=== PATIENT | female | born 1990 | race Caucasian/White ===

== ENCOUNTER 2017-12-25 00:31 | Observation (INO) ==
[2017-12-25] MEDS ORDERED: MORPHINE 4 MG/1 ML VIAL IV STA (01:02)
[2017-12-25] MEDS ORDERED: ONDANSETRON 4 MG/2 ML VIAL IV STA ×2 (01:02→04:03)
[2017-12-25 01:41] LABS: Basophils % 0.3 % (0.0-0.8); Eosinophils # 0.3 10*3/uL (0.0-0.87); Eosinophils % 3.1 % (0.00-10.9); Hematocrit 41.3 VOL% (35.7-47.0); Hemoglobin 13.9 GM/DL (12.0-16.0); Immature Granulocytes % 0.2 %; Immature Granulocytes Absolute 0.02 #; Lymphocytes # 1.8 10*3/uL (1.4-4.0); Lymphocytes % 20.1 % (21.3-54.2); Mean Corpuscular HGB Conc 33.7 GM/DL (32-36); Mean Corpuscular Hemoglobin 32 PG (27-34); Mean Corpuscular Volume 95.2 FL (87-102); Mean Platelet Volume 10.8 FL (9.6-12.0); Monocytes # 0.4 10*3/uL (0.11-0.8); Monocytes % 4.6 % (1.7-12.7); Neutrophils # 6.5 10*3/uL (1.4-7.4); Neutrophils % 71.7 % (38.7-73.9); Platelet Count 234 T/CUMM (130-400); Red Blood Count 4.34 MC/CUMM (3.8-5.5); Red Cell Distribution Width 12.8 % (9.3-17.3); White Blood Count 9.1 T/CUMM (4-12)
[2017-12-25 02:15] LABS: Albumin 3.5 G/DL (3.4-5.0); Bilirubin,Total 0.8 MG/DL (0.2-1.0); Calcium 8.6 MG/DL (8.5-10.1); Osmolality,Calculated 276.4 MOS/KG (273-304); Potassium 3.4 MMOL/L (3.5-5.1); Total Protein 7.3 G/DL (6.4-8.3)
[2017-12-25 04:01] LABS: Apearance,Urine Slightly Hazy (Clear); Bacteria,Urine Occasional /HPF (Few); Bilirubin,Urine Small mg/dL (Negative); Blood, Urine Moderate mg/dL (Negative); Glucose,Urine (UA) Negative (Negative); Ketones,Urine Negative (Negative); Mucus,Urine Many /LPF (Occasional); Nitrite,Urine Negative (Negative); Protein,Urine 30 MG/DL; RBC,Urine 4 /HPF (0-4); Squamous Epithelial Cell,Urine Occasional /HPF (0-10); Urine Color Amber (Yellow); Urine Specific Gravity 1.028 (1.001-1.035); WBC,Urine 2 /HPF (0-6)
[2017-12-25] MEDS ORDERED: HYDROmorphone 2 MG/1 ML VIAL IV STA (04:02)
[2017-12-25] MEDS: SODIUM CHLORIDE 0.9% 1,000 ML IV STA ×2 (04:34→04:41)
[2017-12-25] MEDS: DEXTROSE 5% LACTATED RINGERS 1,000 ML IV SCH ×2 (12:21→16:17)
[2017-12-25] MEDS: PANTOPRAZOLE 40 MG TABLET PO SCH (14:08)
[2017-12-25] MEDS: ONDANSETRON 4 MG/2 ML VIAL IV PRN (20:38)
[2017-12-25] MEDS: HYDROmorphone 2 MG/1 ML VIAL IV PRN (21:55)
[2017-12-26] MEDS: DEXTROSE 5% LACTATED RINGERS 1,000 ML IV SCH ×2 (06:57→20:26)
[2017-12-26] MEDS ORDERED: LIDOCAINE 100 MG/5 ML SYRINGE ONE (09:40)
[2017-12-26] MEDS ORDERED: PROPOFOL 200 MG/20 ML VIAL IV ONE (09:40)
[2017-12-26] MEDS: PANTOPRAZOLE 40 MG TABLET PO SCH (12:09)
[2017-12-26] MEDS: HYDROmorphone 2 MG/1 ML VIAL IV PRN (14:50)
[2017-12-26] MEDS: ONDANSETRON 4 MG/2 ML VIAL IV PRN ×2 (14:54→18:42)
[2017-12-27] MEDS: DEXTROSE 5% LACTATED RINGERS 1,000 ML IV SCH ×2 (06:29→15:27)
[2017-12-27] MEDS: PANTOPRAZOLE 40 MG TABLET PO SCH (09:20)
[2017-12-27] MEDS: ONDANSETRON 4 MG/2 ML VIAL IV PRN ×2 (09:50→20:33)
[2017-12-27] MEDS ORDERED: ceFAZolin 1,000 MG in SYRINGE 1 EACH IV ONE (11:25)
[2017-12-27] MEDS: HYDROmorphone 2 MG/1 ML VIAL IV PRN ×2 (12:34→20:36)
[2017-12-28] MEDS: DEXTROSE 5% LACTATED RINGERS 1,000 ML IV SCH ×3 (01:10→19:13)
[2017-12-28] MEDS ORDERED: ceFAZolin 1,000 MG in SYRINGE 1 EACH IV ONE (06:00)
[2017-12-28] MEDS ORDERED: HYDROmorphone 2 MG/1 ML VIAL ONE (10:04)
[2017-12-28] MEDS: HYDROmorphone 2 MG/1 ML VIAL IV PRN ×6 (10:15→22:49)
[2017-12-28] MEDS: PANTOPRAZOLE 40 MG TABLET PO SCH (10:59)
[2017-12-28] MEDS ORDERED: NEOSTIGMINE 10 MG/10 ML VIAL ONE (12:31)
[2017-12-28] MEDS ORDERED: fentaNYL 100 MCG/2 ML VIAL ONE (12:31)
[2017-12-28] MEDS ORDERED: PROPOFOL 200 MG/20 ML VIAL IV ONE (12:31)
[2017-12-28] MEDS ORDERED: SEVOFLURANE 1 UNIT/15 MINUTE INH ONE (12:31)
[2017-12-28] MEDS ORDERED: MIDAZOLAM 2 MG/2 ML VIAL ONE (12:31)
[2017-12-28] MEDS ORDERED: GLYCOPYRROLATE 0.4 MG/2 ML VIAL ONE (12:31)
[2017-12-28] MEDS ORDERED: KETOROLAC 30 MG/1 ML VIAL ONE (12:31)
[2017-12-28] MEDS ORDERED: ROCURONIUM 100 MG/10 ML VIAL IV ONE (12:31)
[2017-12-28] MEDS: ONDANSETRON 4 MG/2 ML VIAL IV PRN ×2 (16:05→22:48)
[2017-12-29] MEDS: DEXTROSE 5% LACTATED RINGERS 1,000 ML IV SCH (03:29)
[2017-12-29] MEDS: ONDANSETRON 4 MG/2 ML VIAL IV PRN ×2 (05:05→09:25)
[2017-12-29] MEDS: HYDROmorphone 2 MG/1 ML VIAL IV PRN ×2 (05:05→09:20)
[2017-12-29] MEDS: PANTOPRAZOLE 40 MG TABLET PO SCH (09:31)
[2017-12-29 13:02] VITALS: BP 106/59
== END 2017-12-29 14:30 | disposition home or self-care (01) ==
LOC: N.ED 00:31 → N.EDINP 00:31 → N.3E 04:30
PROVIDERS: ADMIT Surgery; ATTEND Surgery
PROC: LAPCHOL (2017-12-28 08:41)

== ENCOUNTER 2019-08-18 10:41 | Inpatient (IN) ==
[2019-08-18 11:30] LABS: Barbiturates Screen,Urine Negative (Negative); Benzodiazepines Screen,Urine Negative (Negative); Cannabinoid Screen,Urine Positive (Negative); Opiate Screen,Urine Positive (Negative); Phencyclidine Screen,Urine Negative (Negative)
[2019-08-18 11:45] LABS: Basophils % 0.4 % (0.0-0.8); Eosinophils # 0.3 10*3/uL (0.0-0.87); Eosinophils % 2.3 % (0.00-10.9); Hematocrit 34.8 VOL% (35.7-47.0); Hemoglobin 11.4 GM/DL (12.0-16.0); Immature Granulocytes % 0.4 %; Immature Granulocytes Absolute 0.04 #; Lymphocytes # 1.6 10*3/uL (1.4-4.0); Lymphocytes % 13.7 % (21.3-54.2); Mean Corpuscular HGB Conc 32.8 GM/DL (32-36); Mean Corpuscular Volume 99.1 FL (87-102); Mean Platelet Volume 10.4 FL (9.6-12.0); Monocytes % 8.7 % (1.7-12.7); Neutrophils % 74.5 % (38.7-73.9); Platelet Count 254 T/CUMM (130-400); Red Blood Count 3.51 MC/CUMM (3.8-5.5); Red Cell Distribution Width 12.5 % (9.3-17.3); White Blood Count 11.4 T/CUMM (4-12)
[2019-08-18 12:11] LABS: Albumin 2.7 G/DL (3.4-5.0); Bilirubin,Total 0.6 MG/DL (0.2-1.0); Calcium 8.4 MG/DL (8.5-10.1); Osmolality,Calculated 265.4 MOS/KG (273-304); Total Protein 7.1 G/DL (6.4-8.3)
[2019-08-18] MEDS ORDERED: DEXTROSE 10% 250 ML BAG IV PRN (12:23)
[2019-08-18] MEDS ORDERED: VANCOMYCIN INJ 1,250 MG in SODIUM CHLORIDE 0.9% 250 ML IV STA (12:23)
[2019-08-18] MEDS ORDERED: GLUCAGON 1 MG VIAL IM PRN (12:23)
[2019-08-18] MEDS: SODIUM CHLORIDE 0.9% 1,000 ML IV SCH ×2 (12:44→20:43)
[2019-08-18] MEDS: ONDANSETRON 4 MG/2 ML VIAL IV PRN (12:44)
[2019-08-18] MEDS: MORPHINE 4 MG/1 ML VIAL IV SCH ×3 (12:46→17:57)
[2019-08-18] MEDS: cefTRIAXone 2,000 MG in SYRINGE 1 EACH IV SCH (13:15)
[2019-08-18] MEDS: MORPHINE 4 MG/1 ML VIAL IV PRN ×2 (17:14→23:32)
[2019-08-19] MEDS: VANCOMYCIN INJ 1,250 MG in SODIUM CHLORIDE 0.9% 250 ML IV SCH ×2 (02:47→15:07)
[2019-08-19] MEDS: SODIUM CHLORIDE 0.9% 1,000 ML IV SCH (06:18)
[2019-08-19 07:28] LABS: Basophils # 0.1 10*3/uL (0.0-0.2); Basophils % 0.5 % (0.0-0.8); Eosinophils # 0.3 10*3/uL (0.0-0.87); Eosinophils % 3.1 % (0.00-10.9); Hematocrit 31.1 VOL% (35.7-47.0); Immature Granulocytes % 0.4 %; Immature Granulocytes Absolute 0.04 #; Lymphocytes # 1.9 10*3/uL (1.4-4.0); Lymphocytes % 18.2 % (21.3-54.2); Mean Corpuscular HGB Conc 32.2 GM/DL (32-36); Mean Platelet Volume 9.9 FL (9.6-12.0); Neutrophils % 68.8 % (38.7-73.9); Platelet Count 199 T/CUMM (130-400); Red Blood Count 3.08 MC/CUMM (3.8-5.5); Red Cell Distribution Width 12.6 % (9.3-17.3); White Blood Count 10.6 T/CUMM (4-12)
[2019-08-19 07:51] LABS: Albumin 2.1 G/DL (3.4-5.0); Bilirubin,Total 0.6 MG/DL (0.2-1.0); Calcium 7.8 MG/DL (8.5-10.1); Osmolality,Calculated 270.8 MOS/KG (273-304); Total Protein 5.4 G/DL (6.4-8.3)
[2019-08-19] MEDS: ONDANSETRON 4 MG/2 ML VIAL IV PRN ×2 (12:31→21:13)
[2019-08-19] MEDS: cefTRIAXone 2,000 MG in SYRINGE 1 EACH IV SCH (15:06)
[2019-08-19] MEDS ORDERED: MORPHINE 4 MG/1 ML VIAL IV ONE (16:57)
[2019-08-20] MEDS: SODIUM CHLORIDE 0.9% 1,000 ML IV SCH ×3 (01:17→11:00)
[2019-08-20] MEDS: VANCOMYCIN INJ 1,250 MG in SODIUM CHLORIDE 0.9% 250 ML IV SCH ×2 (02:48→14:13)
[2019-08-20 05:44] LABS: Basophils % 0.5 % (0.0-0.8); Eosinophils # 0.4 10*3/uL (0.0-0.87); Eosinophils % 4.9 % (0.00-10.9); Hemoglobin 10.6 GM/DL (12.0-16.0); Immature Granulocytes % 0.4 %; Immature Granulocytes Absolute 0.03 #; Lymphocytes # 2.2 10*3/uL (1.4-4.0); Lymphocytes % 25.7 % (21.3-54.2); Mean Corpuscular HGB Conc 32.1 GM/DL (32-36); Mean Corpuscular Volume 99.1 FL (87-102); Mean Platelet Volume 10.3 FL (9.6-12.0); Neutrophils % 61.5 % (38.7-73.9); Platelet Count 212 T/CUMM (130-400); Red Blood Count 3.33 MC/CUMM (3.8-5.5); Red Cell Distribution Width 12.6 % (9.3-17.3); White Blood Count 8.4 T/CUMM (4-12)
[2019-08-20 06:09] LABS: Albumin 2.1 G/DL (3.4-5.0); Bilirubin,Total 0.4 MG/DL (0.2-1.0); Calcium 8.1 MG/DL (8.5-10.1); Osmolality,Calculated 271.8 MOS/KG (273-304); Total Protein 5.6 G/DL (6.4-8.3)
[2019-08-20] MEDS ORDERED: LIDOCAINE 1% 20 ML VIAL MISC INJ ONE (09:00)
[2019-08-20] MEDS ORDERED: HYDROmorphone 2 MG/1 ML VIAL ONE (09:18)
[2019-08-20] MEDS ORDERED: ONDANSETRON 4 MG/2 ML VIAL ONE ×2 (09:19→09:22)
[2019-08-20] MEDS ORDERED: propofoL 200 MG/20 ML VIAL IV ONE (09:21)
[2019-08-20] MEDS ORDERED: SEVOFLURANE 1 UNIT/15 MINUTE INH ONE (09:22)
[2019-08-20] MEDS: HYDROmorphone 2 MG/1 ML VIAL IV PRN ×3 (09:22→09:47)
[2019-08-20] MEDS ORDERED: LIDOCAINE 2% 5 ML VIAL ONE (09:22)
[2019-08-20] MEDS ORDERED: MIDAZOLAM 2 MG/2 ML VIAL ONE (09:22)
[2019-08-20] MEDS ORDERED: fentaNYL 100 MCG/2 ML VIAL ONE (09:22)
[2019-08-20] MEDS ORDERED: ONDANSETRON 4 MG/2 ML VIAL IV PRN (09:28)
[2019-08-20] MEDS: SODIUM HYPOCHLORITE 0.25% IRRIG 473 ML BOTTLE TOP SCH (09:51)
[2019-08-20] MEDS: ONDANSETRON 4 MG/2 ML VIAL IV PRN (12:21)
[2019-08-20] MEDS: MORPHINE 4 MG/1 ML VIAL IV PRN ×3 (12:22→21:56)
[2019-08-20 13:29] LABS: HIV Antigen/Antibody Result Nonreactive (Nonreactive); Hepatitis B Core IgM Quant 0.13 Index; Hepatitis B Surface Ag Result Negative (Negative); Hepatitis C Virus Ab Quant 0.06 Index; Hepatitis C Virus Ab Result Negative (Negative)
[2019-08-20] MEDS: SULFAMETHOX/TRIMETHOPRIM 800-160 MG TABLET PO SCH (17:03)
[2019-08-21] MEDS: VANCOMYCIN INJ 1,250 MG in SODIUM CHLORIDE 0.9% 250 ML IV SCH (02:50)
[2019-08-21] MEDS: MORPHINE 4 MG/1 ML VIAL IV PRN ×2 (02:51→09:39)
[2019-08-21] MEDS: ONDANSETRON 4 MG/2 ML VIAL IV PRN (05:05)
[2019-08-21 06:18] LABS: Basophils % 0.5 % (0.0-0.8); Eosinophils # 0.3 10*3/uL (0.0-0.87); Eosinophils % 4.5 % (0.00-10.9); Hematocrit 31.9 VOL% (35.7-47.0); Immature Granulocytes % 0.4 %; Immature Granulocytes Absolute 0.03 #; Lymphocytes # 2.1 10*3/uL (1.4-4.0); Mean Corpuscular HGB Conc 31.3 GM/DL (32-36); Mean Corpuscular Volume 102.9 FL (87-102); Mean Platelet Volume 10.2 FL (9.6-12.0); Monocytes % 7.7 % (1.7-12.7); Neutrophils % 58.9 % (38.7-73.9); Platelet Count 195 T/CUMM (130-400); Red Cell Distribution Width 12.4 % (9.3-17.3); White Blood Count 7.6 T/CUMM (4-12)
[2019-08-21 06:25] LABS: Alanine Aminotransferase 97 U/L (13-56); Albumin 2.1 G/DL (3.4-5.0); Alkaline Phosphatase 261 U/L (45-117); Aspartate Amino Transferase 54 U/L (0-37); Bilirubin,Total < 0.39 MG/DL (0.2-1.0); Blood Urea Nitrogen 6 MG/DL (7-18); Estimated Glom Filtration Rate 98 ML/MIN; Glucose 87 MG/DL (74-106); Osmolality,Calculated 269.8 MOS/KG (273-304); Total Protein 5.7 G/DL (6.4-8.3)
[2019-08-21 06:40] LABS: Eosinophils 5 % (0-10); Lymphocytes 33 % (20-55); Segmented Neutrophils 59 % (50-85)
[2019-08-21 06:41] LABS: Platelet Estimate Normal; Total Cells Counted 100
[2019-08-21 09:19] VITALS: BP 102/64
[2019-08-21] MEDS: SULFAMETHOX/TRIMETHOPRIM 800-160 MG TABLET PO SCH (09:40)
[2019-08-21] MEDS: SODIUM HYPOCHLORITE 0.25% IRRIG 473 ML BOTTLE TOP SCH (09:49)
== END 2019-08-21 10:45 | disposition home or self-care (01) | DRG 603 ==
LOC: N.ED 10:41 → N.EDINP 12:15 → N.3E 14:06
PROVIDERS: ADMIT Internal Medicine; ATTEND Internal Medicine